=== PATIENT | female | born 1980 | race Caucasian/White ===

== ENCOUNTER 2018-11-05 17:22 | Emergency (ER) | payer MEDICAID ==
[2018-11-05] MEDS: ACETAMINOPHEN 325 MG TAB PO (19:20)
[2018-11-05] MEDS: CEPHALEXIN 500 MG CAP PO (20:26)
== END 2018-11-05 20:32 | disposition home or self-care (01) ==
LOC: FTE 17:22
DX: O20.9 Hemorrhage in early pregnancy, unspecified (principal); O23.42 Unspecified infection of urinary tract in pregnancy, second trimester; R10.2 Pelvic and perineal pain; Z3A.17 17 weeks gestation of pregnancy
CPT/HCPCS: 76805; 81001; 84702; 85025; 86900; 86901; 87086; 99284-25